=== PATIENT | male | born 1960 ===

== ENCOUNTER 2023-08-13 07:51 | Day surgery (SDC) | payer OTHER ==
[2023-08-13] VITALS (11 sets, daily range): BP systolic 138–155; BP diastolic 85–103
[~2023-08-13] VITALS: Ht 190.5 cm; Wt 100.8 kg
[~2023-08-13 07:51] MED LIST: FISH OIL 1,2001 EAC7 PO; GLUCHON PO; MULVITA PO; Norco 5-325 Ta1 EACH PO
[2023-08-13] MEDS ORDERED: CeFAZolin Sodium 2,000 MG in NS 50 ML IV SCH (08:05)
[2023-08-13] MEDS ORDERED: Lactated Ringer's 1,000 ML IV SCH (08:05)
[2023-08-13] MEDS ORDERED: Ondansetron HCl 2 MG / ML 2ML Vial IV PRN (08:10)
[2023-08-13] MEDS ORDERED: HYDROmorphone HCl/Pf 1MG SYR IV PRN (08:15)
[2023-08-13] MEDS ORDERED: Lidocaine HCl 1% 5 ML SYR INJ ONE ×2 (08:15→10:20)
[2023-08-13] MEDS ORDERED: Midazolam HCl 1MG / ML 2ML Vial IV PRN ×2 (08:15→10:20)
[2023-08-13] MEDS ORDERED: FentaNYL Citrate 50 MCG/ML 2 ML Injection IV PRN ×3 (08:15)
[2023-08-13] MEDS ORDERED: B-12500 MC2 PO (08:24)
[2023-08-13] MEDS ORDERED: propofoL 20 ML IV ONE (08:38)
[2023-08-13] MEDS ORDERED: Sugammadex Sodium 200 MG/2ML SDV (100 MG/ML) ONE (08:38)
[2023-08-13] MEDS ORDERED: FentaNYL Citrate 50 MCG/ML 2 ML Injection ONE ×3 (08:38→12:37)
[2023-08-13] MEDS ORDERED: Ondansetron HCl 2 MG / ML 2ML Vial ONE (08:51)
[2023-08-13] MEDS ORDERED: Rocuronium Bromide 10 MG/ML 5ML Injection IV ONE (08:51)
[2023-08-13] MEDS ORDERED: Ketorolac Tromethamine 30mg Vial ONE (08:51)
[2023-08-13] MEDS ORDERED: Dexamethasone Sod Phos 10 MG/ML 1ML VIAL ONE (08:51)
[2023-08-13 08:54] LABS: BASOPHILS ABSOLUTE AUTO 0.08 K/mm3 (0.00-0.23); BASOPHILS PERCENT AUTO 2 % (0-2); EOSINOPHILS ABSOLUTE AUTO 0.27 K/mm3 (0.00-0.68); EOSINOPHILS PERCENT AUTO 5 % (0-6); Hemoglobin 16.5 g/dL (13.5-17.5); IMMATURE GRAN ABSOLUTE AUTO 0.03 K/mm3 (0.00-0.10); IMMATURE GRAN PERCENT AUTO 1 % (0-1); LYMPHOCYTES ABSOLUTE AUTO 1.09 K/mm3 (0.84-5.20); LYMPHOCYTES PERCENT AUTO 21 % (21-46); MONOCYTES ABSOLUTE AUTO 0.42 K/mm3 (0.16-1.47); MONOCYTES PERCENT AUTO 8 % (4-13); Mean Corpuscular HGB 31.5 pg (26.0-34.0); Mean Corpuscular HGB Conc 35.1 g/dL (31.5-36.5); Mean Corpuscular Volume 90 fL (80-100); Mean Platelet Volume 9.5 fL (9.1-12.4); NEUTROPHILS ABSOLUTE AUTO 3.42 K/mm3 (1.96-9.15); NEUTROPHILS PERCENT AUTO 64 % (41-73); Platelet Count 270 K/mm3 (150-400); RDW Coefficient Variation 11.7 % (11.7-14.2); RDW Standard Deviation 38.1 fL (35.1-46.3); Red Blood Cell Count 5.24 M/mm3 (4.30-5.90); White Blood Cell Count 5.31 K/mm3 (4.00-11.30)
[2023-08-13 09:07] LABS: Bun/Creatinine Ratio 24.7 (12.0-20.0); Calcium, Blood 8.8 mg/dL (8.5-10.1); Creatinine, Blood 0.81 mg/dL (0.60-1.20); Potassium, Blood 3.8 mmol/L (3.5-5.5)
--- NOTE | 2023-08-13 09:10 | NUR ---
Ambulatory in Day Surgery History, Chart, Medications and Allergies reviewed before start of procedure. Lungs clear T/O to Auscultation. Pre-Op teaching done. Pt verbalizes understanding. Patient States Post-Procedure ride home has been arranged.
[2023-08-13] MEDS ORDERED: Bupivacaine 0.5% HCl 5 MG/ML 30MLVIAL ONE (09:35)
[2023-08-13] MEDS ORDERED: OxyCODONE 5 mg/Acetamin 325 mg TABLET PO PRN (13:40)
--- NOTE | 2023-08-13 14:22 | NUR ---
Discharge instructions reviewed with patient. Patient verbalizes understanding. Copy given to patient to take home. Pt's prescription placed in discharge folder. Patient States Post-Procedure ride home has been arranged. Discharged via wheelchair to private car for ride home.
== END 2023-08-13 14:10 | disposition home or self-care (01) ==
LOC: ORSCMMR 07:51
PROVIDERS: Surgery
PROC: 8E0W4CZ Robotic Assisted Procedure of Trunk Region, Percutaneous Endoscopic Approach (ICD-10-PCS; principal; 2023-08-13 09:30)
PROC: 0WUF4JZ Supplement Abdominal Wall with Synthetic Substitute, Percutaneous Endoscopic Approach (ICD-10-PCS; principal; 2023-08-13 09:30)
DX: K42.0 Umbilical hernia with obstruction, without gangrene (principal); F31.9 Bipolar disorder, unspecified; F43.10 Post-traumatic stress disorder, unspecified; E66.9 Obesity, unspecified; Z68.38 Body mass index [BMI] 38.0-38.9, adult
CPT/HCPCS: 80048; 85025; 93005; 93010; A9270; C1781; J0690; J1100; J1885; J2250; J2405; J2704; J3010; J7120